=== PATIENT | male | born 1970 | race African-American/Black ===

== ENCOUNTER 2018-02-13 11:02 | Emergency (ER) | payer OTHER ==
[~2018-02-13] VITALS: Ht 182.9 cm; Wt 145.5 kg
[~2018-02-13 11:02] MED LIST: ALDACTONE25 MG PO; CEPHALEXIN500 MG OR; HYDROCHLOROT12.5 MG OR; NAPROSYN500 MG PO; NORVASC10 MG OR; ZESTRIL10 M1 PO
[2018-02-13] MEDS ORDERED: AMLODIPINE BES2.5 MG PO (11:27)
[2018-02-13] MEDS ORDERED: CARVEDILOL6.25 MG PO (11:28)
[2018-02-13] MEDS ORDERED: POTASSIUM99 MG PO (11:28)
[2018-02-13 12:03] LABS: INFLUENZA B NONE DETECTED (NONE DETECT)
[2018-02-13] MEDS ORDERED: ZITHROMAX250 MG PO (12:19)
[2018-02-13] MEDS ORDERED: PROVENTIL108 MCG/AC IN (12:19)
[2018-02-13 12:25] VITALS: BP 160/91
== END 2018-02-13 12:25 | disposition home or self-care (01) | DRG 153 ==
LOC: ED 11:02
PROVIDERS: Emergency Medicine
DX: J06.9 Acute upper respiratory infection, unspecified (principal); J40 Bronchitis, not specified as acute or chronic; R05 Cough; R50.9 Fever, unspecified; R09.81 Nasal congestion

== ENCOUNTER 2024-02-21 08:59 | Emergency (ER) | payer BC ==
[2024-02-21] VITALS (20 sets, daily range): BP systolic 140–174; BP diastolic 92–125
[~2024-02-21] VITALS: Ht 182.9 cm; Wt 135.0 kg
[~2024-02-21 08:59] MED LIST changes: +AMLODIPINE BES2.5 MG PO; +CARVEDILOL6.25 MG PO; +POTASSIUM99 MG PO; +PROVENTIL108 MCG/AC IN; +ZITHROMAX250 MG PO
[2024-02-21] MEDS ORDERED: ONDANSETRON 4 MG/TAB ODT SL ONE (09:35)
[2024-02-21] MEDS ORDERED: KETOROLAC TROMETHAMINE 30 MG/ML SDV IM ONE (09:35)
[2024-02-21 09:49] LABS: BASO% 0.4 % (0-3); HEMATOCRIT 38.4 % (39.0-50.0); HEMOGLOBIN 13.3 g/dl (14.0-18.0); IMMATURE GRANULOCYTES 0.3 % (0.0-5.0); LYMPH% 29.5 % (15-41); MEAN CELL VOLUME 83.8 fL CALC (80.0-100.0); MEAN CORPUSCULAR HGB CONC 34.6 g/dL CAL (32.0-36.0); MONO% 11.4 % (2-13); NEUT# 4.01 thou/uL (1.82-7.42); NEUT% 56.4 % (42-76); RED BLOOD COUNT 4.58 mill/uL (4.70-6.10); RED CELL DISTRI WIDTH 14.7 % (11.5-15.5)
[2024-02-21 10:01] LABS: ALBUMIN 4.4 g/dL (3.2-5.0); BILIRUBIN, TOTAL 0.5 mg/dL (0.2-1.3); CREATININE 0.9 mg/dL (0.7-1.3); TOTAL PROTEIN 7.6 g/dL (6.3-8.2)
[2024-02-21 10:38] LABS: URINE BILIRUBIN - DIPSTICK Negative (NEGATIVE); URINE BLOOD DIPSTICK Negative (NEGATIVE); URINE GLUCOSE - DIPSTICK Negative (NEGATIVE); URINE KETONE Negative (NEGATIVE); URINE LEUK ESTERASE Negative (NEGATIVE); URINE NITRITE - DIPSTICK Negative (Negative); URINE PROTEIN - DIPSTICK Trace mg/dL (NEG-TRACE); URINE SPECIFIC GRAVITY 1.025; URINE UROBILINOGEN - DIPSTICK 0.2 E.U./dL (0.2)
[2024-02-21 10:39] LABS: URINE COLOR Yellow
[2024-02-21] MEDS ORDERED: PEPCID20 MG PO (12:11)
== END 2024-02-21 12:27 | disposition home or self-care (01) | DRG 392 ==
LOC: ED 08:59
PROVIDERS: Family Medicine
DX: R10.33 Periumbilical pain (principal); I10 Essential (primary) hypertension; E11.9 Type 2 diabetes mellitus without complications